=== PATIENT | female | born 1950 | race Two or more races ===

== ENCOUNTER 2018-04-07 14:51 | Emergency (ER) | payer MEDICARE, MEDICAID ==
[~2018-04-07] VITALS: Ht 165.1 cm; Wt 36.3 kg
[2018-04-07 16:09] LABS: Basophils # (auto) 0 uL; Eosinophils # (auto) 0.2 uL; Hemoglobin 12.6 g/dL (12.2-16.2); Monocytes # (auto) 0.7 uL; Neutrophils # (auto) 2.9 uL; Nucleated Red Blood Cells % 0.2 %
[2018-04-07 16:11] LABS: Basophils % (auto) 0.5 % (0.0-2.0); Eosinophils % (auto) 4.1 % (0.0-7.0); Hematocrit 39.6 % (36.0-46.0); Lymphocytes # (auto) 1.6 uL; Lymphocytes % (auto) 29.4 % (10.0-50.0); Mean Corpuscular Hemoglobin 26.9 pg (28.0-32.0); Mean Corpuscular Hgb Conc. 31.7 g/dL (32.0-36.0); Mean Corpuscular Volume 84.7 fL (80.0-100.0); Monocytes % (auto) 12.7 % (0.0-12.0); Neutrophils % (auto) 53.3 % (37.0-80.0); Platelet Count (auto) 163 10^3/uL (140-450); Red Blood Cells 4.67 10^6/uL (4.0-5.20); Red Cell Distribution Width 16.4 % (11.8-14.3); White Blood Cell 5.4 10^3/uL (4.4-10.8)
[2018-04-07 16:16] LABS: Alanine Aminotransferase 16 U/L (13-56); Albumin 3.8 g/dL (3.4-5.0); Anion Gap 7 (5-15); Aspartate Aminotransferase 24 U/L (15-37); Blood Urea Nitrogen 16 mg/dL (7-18); Calcium 8.8 mg/dL (8.5-10.1); Carbon Dioxide 24 mmol/L (21-32); Chloride 109 mmol/L (98-107); Glucose 64 mg/dL (74-106); Potassium 3.4 mmol/L (3.5-5.1); Sodium 140 mmol/L (136-145)
[2018-04-07 16:21] LABS: Alkaline Phosphatase 117 U/L (45-117); BUN/Creatinine Ratio 13.7; Bilirubin, Total 0.5 mg/dL (0.2-1.0); GFR African American 59 mL/min; GFR Non-African American 49 mL/min; Total Protein 8.6 g/dL (6.4-8.2)
[2018-04-07 20:21] VITALS: BP 155/80
== END 2018-04-07 21:22 | disposition home or self-care (01) ==
LOC: ER 15:08
DX: J20.9 Acute bronchitis, unspecified (principal); M79.676 Pain in unspecified toe(s)
CPT/HCPCS: 36415; 71046; 80053; 83735; 84484; 85025; 93005